=== PATIENT | female | born 1935 | race Caucasian/White ===

== ENCOUNTER → 2017-01-03 | Outpatient (CLI) | payer OTHER | LOC: CIMAGING 09:48 | PROVIDERS: ATTEND Podiatrist | DX: R22.42 Localized swelling, mass and lump, left lower limb (principal); M89.8X7 Other specified disorders of bone, ankle and foot | CPT/HCPCS: 73630-PO; G0463-PO ==

== ENCOUNTER → 2019-03-14 | Outpatient (CLI) | payer OTHER | LOC: CIMAGING 07:33 | PROVIDERS: ATTEND Internal Medicine | DX: R91.8 Other nonspecific abnormal finding of lung field (principal); R05 Cough; R06.02 Shortness of breath | CPT/HCPCS: 71046-PO ==

== ENCOUNTER → 2019-04-08 | Outpatient (CLI) | payer OTHER | LOC: CIMAGING 10:18 ==